=== PATIENT | male | born 1970 | race Caucasian/White ===

== ENCOUNTER 2019-08-14 05:14 | Emergency (ER) | payer SELFPAY ==
[~2019-08-14] VITALS: Ht 188 cm; Wt 79.5 kg
[2019-08-14] MEDS ORDERED: NS 1,000 ML IV ONE (06:15)
[2019-08-14] MEDS ORDERED: KETOROLAC 30 MG/ML VIAL (J1885) IV ONE (06:15)
[2019-08-14] MEDS: GASTROGRAFIN SOLUTION 30ML PO SCH ×2 (06:55→07:35)
[2019-08-14 07:06] LABS: BASO # 0.1 10^3/uL (0.0-0.2); BASO % 0.6 % (0.0-1.0); EOS # 0.4 10^3/uL (0.0-0.5); EOS % 5.1 % (0.0-3.0); HEMATOCRIT 46.5 % (42.0-52.0); HEMOGLOBIN 15.6 g/dl (13.5-17.5); LYMPH # 2.8 10^3/uL (1.5-5.0); LYMPH % 33.7 % (24.0-44.0); MEAN CORPUSCULAR HEMOGLOBIN 31.9 pg (27.0-33.0); MEAN CORPUSCULAR HGB CONC 33.5 g/dl (32.0-36.5); MEAN CORPUSCULAR VOLUME 95.1 fl (80.0-96.0); MONO # 0.9 10^3/uL (0.0-0.8); MONO % 10.6 % (0.0-5.0); NEUTROPHILS # 4.1 10^3/uL (1.5-8.5); NEUTROPHILS % 49.5 % (36.0-66.0); PLATELET COUNT, AUTOMATED 353 10^3/uL (150-450); RED BLOOD COUNT 4.89 10^6/uL (4.30-6.10); WHITE BLOOD COUNT 8.2 10^3/uL (4.0-10.0)
[2019-08-14 07:21] LABS: ALT/SGPT 26 U/L (12-78); BILIRUBIN,DIRECT < 0.1 MG/DL (0.0-0.2); BILIRUBIN,TOTAL 0.3 MG/DL (0.2-1.0); BLOOD UREA NITROGEN 12 MG/DL (7-18); CALCIUM LEVEL 9.1 MG/DL (8.5-10.1); CARBON DIOXIDE LEVEL 28 MEQ/L (21-32); CHLORIDE LEVEL 109 MEQ/L (98-107); CK-MB VALUE MASS 1.4 NG/ML (<3.6); CPK CREATINE PHOSPHOKINASE 204 U/L (39-308); CREATININE FOR GFR 1.11 MG/DL (0.70-1.30); GLOMERULAR FILTRATION RATE > 60.0 (>60); GLUCOSE, FASTING 97 MG/DL (70-100); LIPASE 202 U/L (73-393); MB/CK RELATIVE INDEX 0.69 (< OR =4); MYOGLOBIN 49 NG/ML (16-116); POTASSIUM SERUM 4.1 MEQ/L (3.5-5.1); SODIUM LEVEL 140 MEQ/L (136-145); TOTAL PROTEIN 7.8 GM/DL (6.4-8.2); TROPONIN I < 0.02 NG/ML (< 0.10)
[2019-08-14] MEDS ORDERED: ISOVUE-370 76% 100ML VIAL (Q9967) As Ordered ONE (07:32)
--- NOTE | 2019-08-14 07:56 | ECGEPIP ---
[facility] - ED Test Date: 2019-08-14 Pat Name: BEATRIZ DEAN Department: Room: - Gender: Male Single [employer]er: : 1970 Requested By: KEI JAVIER Order Number: [id number] Reading MD: Wai Kelly Measurements Intervals [place] Rate: 63 P: 55 MA: 137 QRS: 56 QRSD: 110 T: 46 QT: 384 QTc: 393 Interpretive Statements SINUS RHYTHM INCOMPLETE RIGHT BUNDLE BRANCH BLOCK NO PRIORS FOR COMPARISON Electronically Signed on 08-14-2019 7:54:28 EDT by Wai Kelly
--- NOTE | 2019-08-14 08:15 | REP ---
Two-view chest: 08/14/2019. Indication: Chest pain. Comparison: 06/23/2010. Findings: The lungs are clear. There is minimal blunting in the left costophrenic angle. There is no pneumothorax. Cardiac silhouette is normal. Impression: Minimal left CP angle blunting, which may represent a small focal pneumonitis or minimal fluid. Electronically Signed by Bhaskar Mcmullen DO 08/14/2019 08:06 A
--- NOTE | 2019-08-14 08:41 | REP ---
CT abdomen with IV and oral contrast: History: Epigastric pain radiating into the right lower quadrant. CT contrast dose: 100 mL of intravenous Isovue 370. No comparison study. 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 The lung bases show minimal linear plate-like atelectasis in the left lower lobe. They are otherwise clear. The liver is near the upper range of normal in size with a 16.3 cm vertical span in the midclavicular line. No focal liver lesion is seen. There is gallbladder wall thickening and there is some intraluminal gas within radiolucent stones in the gallbladder. There is minimal pericholecystic fluid. The gallbladder does not appear dilated. No intrahepatic biliary ductal dilation is observed. The spleen is unremarkable. No pancreatic lesion is apparent. No adrenal lesion is seen. The kidneys enhance symmetrically and are morphologically intact. No retroperitoneal mass or adenopathy is seen. A normal appendix is visible in the right lower quadrant. There are two or three dystrophic calcifications in the mildly enlarged prostate. Seminal vesicles and urinary bladder are unremarkable. No abdominal wall defect is observed. Bone window settings show an old limbus vertebra at L4. There is a 1 cm Schmorl's node at the superior endplate of L1. There is an old wedge compression fracture deformity at the L1 vertebral body with approximately 30% loss of anterior vertebral body height. No bony destructive lesion is seen. Impression: 1. Cholelithiasis with thickening and enhancement of gallbladder wall and minimal pericholecystic fluid. 2. Normal appendix. 3. Mild enlargement of the prostate. 4. Old wedge compression fracture deformity at L1. 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 Electronically Signed by Flavio Link MD 08/14/2019 11:26 A
[2019-08-14] MEDS ORDERED: KETO10TAB PO (09:01)
[2019-08-14 09:12] VITALS: BP 110/66
== END 2019-08-14 09:17 | disposition home or self-care (01) ==
LOC: M ED 05:14
DX: K80.70 Calculus of gallbladder and bile duct without cholecystitis without obstruction (principal); J18.9 Pneumonia, unspecified organism; K21.9 Gastro-esophageal reflux disease without esophagitis; F17.210 Nicotine dependence, cigarettes, uncomplicated
CPT/HCPCS: 71046; 74177; 80048; 80076; 81001; 82550; 82553; 83690; 83874; 84484; 85025; 93005; 96361; 96374; 99285; J1885; Q9963; Q9967

== ENCOUNTER → 2020-02-13 | Outpatient (CLI) | payer OTHER ==
[~2020-02-13] MED LIST: KETO10TAB PO
[2020-02-13 13:56] LABS: BASO # 0.1 10^3/uL (0.0-0.2); BASO % 0.6 % (0.0-1.0); EOS # 0.3 10^3/uL (0.0-0.5); EOS % 3.2 % (0.0-3.0); HEMATOCRIT 49.8 % (42.0-52.0); HEMOGLOBIN 16.9 g/dl (13.5-17.5); LYMPH # 2.5 10^3/uL (1.5-5.0); MEAN CORPUSCULAR HEMOGLOBIN 31.6 pg (27.0-33.0); MEAN CORPUSCULAR HGB CONC 33.9 g/dl (32.0-36.5); MEAN CORPUSCULAR VOLUME 93.1 fl (80.0-96.0); MONO # 0.8 10^3/uL (0.0-0.8); MONO % 8.8 % (0.0-5.0); NEUTROPHILS # 5.4 10^3/uL (1.5-8.5); NEUTROPHILS % 59.1 % (36.0-66.0); PLATELET COUNT, AUTOMATED 393 10^3/uL (150-450); RED BLOOD COUNT 5.35 10^6/uL (4.30-6.10); WHITE BLOOD COUNT 9.1 10^3/uL (4.0-10.0)
[2020-02-13 14:21] LABS: ALBUMIN 4.3 GM/DL (3.2-5.2); ALT/SGPT 24 U/L (12-78); BILIRUBIN,TOTAL 0.6 MG/DL (0.2-1.0); BLOOD UREA NITROGEN 12 MG/DL (7-18); CALCIUM LEVEL 9.9 MG/DL (8.5-10.1); CARBON DIOXIDE LEVEL 29 MEQ/L (21-32); CHLORIDE LEVEL 103 MEQ/L (98-107); CREATININE FOR GFR 0.98 MG/DL (0.70-1.30); GLOMERULAR FILTRATION RATE > 60.0 (>60); GLUCOSE, FASTING 84 MG/DL (70-100); LIPASE 375 U/L (73-393); POTASSIUM SERUM 5.6 MEQ/L (3.5-5.1); SODIUM LEVEL 137 MEQ/L (136-145); TOTAL PROTEIN 8.2 GM/DL (6.4-8.2)
== END ==
LOC: M WUC 10:40
PROVIDERS: ATTEND Physician Assistant
DX: R10.811 Right upper quadrant abdominal tenderness (principal)